=== PATIENT | female | born 1990 ===

== ENCOUNTER 2019-10-16 20:52 | Inpatient (IN) | payer BC ==
[2019-10-16] MEDS ORDERED: Terbutaline 1 MG/ML SDV SUBCUT PRN (23:00)
[2019-10-16] MEDS ORDERED: Carboprost Tromethamine 250 MCG/1 ML Amp IM PRN (23:00)
[2019-10-16] MEDS ORDERED: Sodium Chloride 0.9% 10 ML Syringe FLUSH PRN (23:00)
[2019-10-16] MEDS ORDERED: Tranexamic Acid 1,000 MG in Sodium Chloride 0.9% 100 ML IV PRN (23:00)
[2019-10-16] MEDS ORDERED: Sodium Chloride 0.9% 2.5 ML Syringe FLUSH PRN (23:00)
[2019-10-16] MEDS ORDERED: Water For Irrigation,Sterile 1,000 ML Container IRR PRN (23:00)
[2019-10-16] MEDS ORDERED: Nalbuphine 10 MG/1 ML Vial IVPUSH PRN (23:00)
[2019-10-16] MEDS ORDERED: Sodium Chloride 0.9% 10 ML SDV IV PRN (23:00)
[2019-10-16] MEDS ORDERED: Ondansetron 4 MG/2 ML SDV IVPUSH PRN (23:00)
[2019-10-16] MEDS ORDERED: Methylergonovine 0.2 MG/1 ML Amp IM PRN (23:00)
[2019-10-16] MEDS ORDERED: Oxytocin/0.9 % Sodium Chloride 30 UNIT/500 ML BAG IV SCH ×2 (23:00)
[2019-10-16] MEDS ORDERED: Misoprostol 200 MCG Tab PO PRN (23:00)
[2019-10-16] MEDS ORDERED: Lidocaine 1% 50 ML MDV INJECT PRN (23:00)
[2019-10-16] MEDS ORDERED: Ampicillin 2 GM in Sodium Chloride 0.9% 100 ML IV ONE (23:30)
[2019-10-16] MEDS: Lactated Ringers 1,000 ML IV SCH (23:38)
[2019-10-16] MEDS: Butorphanol 1 MG/ML SDV IVPUSH PRN (23:38)
[2019-10-17] MEDS: Butorphanol 1 MG/ML SDV IVPUSH PRN ×2 (02:00→04:25)
[2019-10-17] MEDS: Ampicillin 1 GM in Sodium Chloride 0.9% 50 ML IV SCH ×5 (03:33→21:46)
[2019-10-17] MEDS: Lactated Ringers 1,000 ML IV SCH ×2 (06:08→11:55)
[2019-10-17] MEDS ORDERED: Bupivicaine/fentaNYL/NS 250 ML ONE (11:04)
--- NOTE | 2019-10-17 12:05 | PCM.PREANE ---
Preanesthetic Assessment - Anesthesia/Transfusion/Family Hx Anesthesia History: Prior Anesthesia Without Reaction Family History of Anesthesia Reaction: No Transfusion History: No Prior Transfusion(s) - Review of Systems General: No Symptoms Pulmonary: No Symptoms Cardiovascular: No Symptoms Gastrointestinal: No Symptoms Neurological: No Symptoms Other: Reports: None - Physical Assessment NPO Status Date: 10/17/19 NPO Status Time: 11:00 Vital Signs: reviewed Height: 5 ft 3 in Weight: 81.647 kg ASA Class: 2 Mental Status: Alert & Oriented x3 Dentition: Reports: Normal Dentition ROM/Head Extension: Full Lungs: Clear to Auscultation, Normal Respiratory Effort Cardiovascular: Regular Rate, Regular Rhythm - Lab Values: Laboratory Last Values WBC 16.82 K/uL (4.0-11.0) H 10/16/19 23:36 RBC 4.35 M/uL (4.30-5.90) 10/16/19 23:36 Hgb 13.5 g/dL (12.0-16.0) 10/16/19 23:36 Hct 39.4 % (36.0-46.0) 10/16/19 23:36 MCV 90.6 fL (80.0-98.0) 10/16/19 23:36 MCH 31.0 pg (27.0-32.0) 10/16/19 23:36 MCHC 34.3 g/dL (31.0-37.0) 10/16/19 23:36 RDW Std Deviation 42.4 fl (28.0-62.0) 10/16/19 23:36 RDW Coeff of Chaparro 13 % (11.0-15.0) 10/16/19 23:36 Plt Count 246 K/uL (150-400) 10/16/19 23:36 MPV 10.40 fL (7.40-12.00) 10/16/19 23:36 Nucleated RBC % 0.0 /100WBC 10/16/19 23:36 Nucleated RBCs # 0 K/uL 10/16/19 23:36 Blood Type O POSITIVE 10/16/19 23:36 Antibody Screen NEGATIVE 10/16/19 23:36 - Allergies Allergies/Adverse Reactions: Allergies Allergy/AdvReac Type Severity Reaction Status Date / Time No Known Allergies Allergy Verified 10/16/19 20:57 - Acknowledgements Anesthesia Type Planned: Epidural Pt an Appropriate Candidate for the Planned Anesthesia: Yes Alternatives and Risks of Anesthesia Discussed w Pt/Guardian: Yes Pt/Guardian Understands and Agrees with Anesthesia Plan: Yes PreAnesthesia Questionnaire HEENT History: Reports: None Cardiovascular History: Reports: None Respiratory History: Reports: None Gastrointestinal History: Reports: GERD Genitourinary History: Reports: None MANAGER NEWS History: Reports: : 1 LMP (Approximate): Musculoskeletal History: Reports: None Neurological History: Reports: None Psychiatric History: Reports: None Endocrine/Metabolic History: Reports: None Hematologic History: Reports: None - Past Surgical History HEENT Surgical History: Reports: Oral Surgery - SUBSTANCE USE Smoking Status *Q: Never Smoker Recreational Drug Use History: No - HOME MEDS Home Medications: Home Meds Vits #93/Iron Fum/FA [ Formula Tablet] 1 each PO DAILY [History] - CURRENT (IN HOUSE) MEDS Current Meds: Current Medications Butorphanol Tartrate (Stadol) 1 mg IVPUSH Q1H PRN PRN Reason: Pain Last Admin: 10/17/19 04:25 Dose: 1 mg Carboprost Tromethamine (Hemabate Ds) 250 mcg IM ASDIRECTED PRN PRN Reason: Post Hemorrhage Lactated Ringer's (Ringers, Lactated) 1,000 mls @ 150 mls/hr IV ASDIRECTED TULIO Last Admin: 10/17/19 11:55 Dose: 150 mls/hr Oxytocin/Sodium Chloride (Oxytocin 30 Unit/500 Ml-Ns) 30 unit in 500 mls @ 500 mls/hr IV TITRATE TULIO Tranexamic Acid 1,000 mg/ (Sodium Chloride) 110 mls @ 660 mls/hr IV ONETIME PRN PRN Reason: Bleeding Oxytocin/Sodium Chloride (Oxytocin 30 Unit/500 Ml-Ns) 30 unit in 500 mls @ 2 mls/hr IV TITRATE TULIO; Protocol Last Admin: 10/17/19 08:13 Dose: 2 munits/min, 2 mls/hr Ampicillin Sodium 1 gm/ Sodium (Chloride) 50 mls @ 100 mls/hr IV Q4H TULIO Last Admin: 10/17/19 11:46 Dose: 100 mls/hr Lidocaine HCl (Xylocaine 1%) 50 ml INJECT ONETIME PRN PRN Reason: Laceration repair Methylergonovine Maleate (Methergine) 0.2 mg IM ASDIRECTED PRN PRN Reason: Post Hemorrhage Misoprostol (Cytotec) 200 mcg PO ONETIME PRN PRN Reason: Post Hemorrhage Nalbuphine HCl (Nubain) 10 mg IVPUSH Q1H PRN PRN Reason: Pain (severe 7-10) Last Admin: 10/17/19 06:09 Dose: 10 mg Ondansetron HCl (Zofran) 4 mg IVPUSH Q6H PRN PRN Reason: Nausea/Vomiting Sodium Chloride (Saline Flush) 10 ml FLUSH ASDIRECTED PRN PRN Reason: Keep Vein Open Sodium Chloride (Saline Flush) 2.5 ml FLUSH ASDIRECTED PRN PRN Reason: Keep Vein Open Sodium Chloride (Normal Saline) 10 ml IV ASDIRECTED PRN PRN Reason: IV Use Sterile Water (Sterile Water For Irrigation) 1,000 ml IRR ASDIRECTED PRN PRN Reason: delivery Terbutaline Sulfate (Brethine) 0.25 mg SUBCUT ASDIRECTED PRN PRN Reason: Tacysystole Discontinued Medications Ampicillin Sodium 2 gm/ Sodium (Chloride) 100 mls @ 200 mls/hr IV ONETIME ONE Stop: 10/16/19 23:59 Last Admin: 10/16/19 23:39 Dose: 200 mls/hr Fentanyl/Bupivacaine HCl (Fentanyl/Bupivacaine/Ns 2 Mcg-0.125% 250 Ml) Confirm Administered Dose 250 mls @ as directed .ROUTE .[facility]-MED ONE Stop: 10/17/19 11:05
[2019-10-17] MEDS ORDERED: Bisacodyl 10 MG Supp RECTAL PRN (17:59)
[2019-10-17] MEDS ORDERED: Lanolin 100% Cream 7 GM Tube TOP PRN (17:59)
[2019-10-17] MEDS ORDERED: Docusate Sodium 100 MG Cap PO PRN (17:59)
--- NOTE | 2019-10-17 18:06 | PCM.DEL ---
L & D Note - General Info Date of Service: 10/17/19 Mother's Due Date: 10/08/19 - Delivery Note Labor: Augmented by Oxytocin Delivery Outcome: Livebirth Infant Delivery Method: Spontaneous Vaginal Delivery-Single Delivery Mode: Spontaneous Presentation: Right Occiput Anterior (GEM) Nuchal Cord: None Anesthesia Type: Epidural Anesthetic: Lidocaine (Xylocaine) 1% Plain Local Anesthetic Volume: Other (30) Amniotic Fluid Description: Clear Episiotomy Type: Right Mediolateral Laceration: None Suture type: Vicryl Suture size: 2-0 Placenta: Intact, Spontaneous Cord: 3 Vessels Resuscitation Needed: Yes [place]: Suctioned, Stimulated, Warmed, Warmer Used Score 1 min: 7 Score 5 min: 8 Vacuum Extractor Progress Note - Alternative Labor Strategies Considered Alternative Labor Strategies Considered:: Reports: Yes Strategies Considered:: Reports: Contraction Intensity Adequate, Position Changes Used to Facilitate Rotation & Descent Indications Considered:: Reports: Yes Indications:: Reports: Prolonged 2nd Stage Time Out:: Reports: No - Patient Prepared Patient Prepared:: Reports: Yes Informed Consent:: Reports: Yes, Verbal Risks: Reports: Yes Risks Include:: Reports: Laceration, Shoulder Dystocia, Maternal Injury, Other ( intracranial hemorrhage) Anesthesia/Analgesia Adequate:: Reports: Yes - Probability of Success High Probability of Success:: Reports: Yes Weight Estimated:: Reports: AGA Patient Diabetic:: Reports: No Pelvis Adequate:: Reports: Yes Asynclitic:: Reports: Yes Station:: +5 - Application Time Maximum Application Time & Number of Pop-Offs Predetermined:: Reports: No Maximum Pressure Maintained in [place] (cm Hg):: 75 Total Application Time (min): *max=20min: 3 Number of Times Cup Disengaged:: 2 Type of Vacuum Used:: Reports: Low profile Vacuum Extraction: Unsuccessful Comments:: poor seal between vacuum and infants head; second vacuum applicator tried again with poor seal - Exit Strategy Exit strategy available:: Reports: Yes and resuscitation teams readily available:: Reports: No (right mediolateral episiotomy performed and Ritgen's maneuver performed with successful delivery of infant) Consult as indicated:: audograph operator in room - General Info Date of Service: 10/17/19 - Patient Data Weight - Most Recent: 81.647 kg Lab Results Last 24 Hours: Laboratory Results - last 24 hr 10/16/19 10/16/19 Range/Units 23:36 23:36 WBC 16.82 H (4.0-11.0) K/uL RBC 4.35 (4.30-5.90) M/uL Hgb 13.5 (12.0-16.0) g/dL Hct 39.4 (36.0-46.0) % MCV 90.6 (80.0-98.0) fL MCH 31.0 (27.0-32.0) pg MCHC 34.3 (31.0-37.0) g/dL RDW Std Deviation 42.4 (28.0-62.0) fl RDW Coeff of Chaparro 13 (11.0-15.0) % Plt Count 246 (150-400) K/uL MPV 10.40 (7.40-12.00) fL Nucleated RBC % 0.0 /100WBC Nucleated RBCs # 0 K/uL Blood Type O POSITIVE Antibody Screen NEGATIVE Med Orders - Current: Current Medications Butorphanol Tartrate (Stadol) 1 mg IVPUSH Q1H PRN PRN Reason: Pain Last Admin: 10/17/19 04:25 Dose: 1 mg Carboprost Tromethamine (Hemabate Ds) 250 mcg IM ASDIRECTED PRN PRN Reason: Post Hemorrhage Lactated Ringer's (Ringers, Lactated) 1,000 mls @ 150 mls/hr IV ASDIRECTED TULIO Last Admin: 10/17/19 11:55 Dose: 150 mls/hr Oxytocin/Sodium Chloride (Oxytocin 30 Unit/500 Ml-Ns) 30 unit in 500 mls @ 500 mls/hr IV TITRATE TULIO Tranexamic Acid 1,000 mg/ (Sodium Chloride) 110 mls @ 660 mls/hr IV ONETIME PRN PRN Reason: Bleeding Oxytocin/Sodium Chloride (Oxytocin 30 Unit/500 Ml-Ns) 30 unit in 500 mls @ 2 mls/hr IV TITRATE TULIO; Protocol Last Titration: 10/17/19 12:16 Dose: 10 munits/min, 10 mls/hr Ampicillin Sodium 1 gm/ Sodium (Chloride) 50 mls @ 100 mls/hr IV Q4H TULIO Last Admin: 10/17/19 11:46 Dose: 100 mls/hr Lidocaine HCl (Xylocaine 1%) 50 ml INJECT ONETIME PRN PRN Reason: Laceration repair Methylergonovine Maleate (Methergine) 0.2 mg IM ASDIRECTED PRN PRN Reason: Post Hemorrhage Misoprostol (Cytotec) 200 mcg PO ONETIME PRN PRN Reason: Post Hemorrhage Nalbuphine HCl (Nubain) 10 mg IVPUSH Q1H PRN PRN Reason: Pain (severe 7-10) Last Admin: 10/17/19 06:09 Dose: 10 mg Ondansetron HCl (Zofran) 4 mg IVPUSH Q6H PRN PRN Reason: Nausea/Vomiting Sodium Chloride (Saline Flush) 10 ml FLUSH ASDIRECTED PRN PRN Reason: Keep Vein Open Sodium Chloride (Saline Flush) 2.5 ml FLUSH ASDIRECTED PRN PRN Reason: Keep Vein Open Sodium Chloride (Normal Saline) 10 ml IV ASDIRECTED PRN PRN Reason: IV Use Sterile Water (Sterile Water For Irrigation) 1,000 ml IRR ASDIRECTED PRN PRN Reason: delivery Terbutaline Sulfate (Brethine) 0.25 mg SUBCUT ASDIRECTED PRN PRN Reason: Tacysystole Discontinued Medications Ampicillin Sodium 2 gm/ Sodium (Chloride) 100 mls @ 200 mls/hr IV ONETIME ONE Stop: 10/16/19 23:59 Last Admin: 10/16/19 23:39 Dose: 200 mls/hr Fentanyl/Bupivacaine HCl (Fentanyl/Bupivacaine/Ns 2 Mcg-0.125% 250 Ml) Confirm Administered Dose 250 mls @ as directed .ROUTE .STK-MED ONE Stop: 10/17/19 11:05 - Problem List & Annotations (1) Vaginal delivery SNOMED Code(s): 673687643 Code(s): O80 - ENCOUNTER FOR FULL-TERM UNCOMPLICATED DELIVERY Status: Acute Current Visit: Yes - Problem List Review Problem List Initiated/Reviewed/Updated: Yes - My Orders Last 24 Hours: My Active Orders 10/16/19 23:00 Bedrest Bathroom Privileges [RC] ASDIRECTED Communication Order [RC] ASDIRECTED Communication Order [RC] ASDIRECTED May Shower [RC] ASDIRECTED Notify Provider [RC] PRN Notify Provider [RC] PRN Oxygen Therapy [RC] ASDIRECTED Vital Signs [RC] PER UNIT ROUTINE Butorphanol [Stadol] 1 mg IVPUSH Q1H PRN Carboprost Tromethamine [Hemabate DS] 250 mcg IM ASDIRECTED PRN Lactated Ringers [Ringers, Lactated] 1,000 ml IV ASDIRECTED Lidocaine 1% [Xylocaine 1%] 50 ml INJECT ONETIME PRN Methylergonovine [Methergine] 0.2 mg IM ASDIRECTED PRN Nalbuphine [Nubain] 10 mg IVPUSH Q1H PRN Ondansetron [Zofran] 4 mg IVPUSH Q6H PRN Oxytocin/0.9 % Sodium Chloride [Oxytocin 30 Unit/500 ML-NS] 30 unit in 500 ml IV TITRATE Oxytocin/0.9 % Sodium Chloride [Oxytocin 30 Unit/500 ML-NS] 30 unit in 500 ml IV TITRATE Sodium Chloride 0.9% [Normal Saline] 10 ml IV ASDIRECTED PRN Sodium Chloride 0.9% [Saline Flush] 10 ml FLUSH ASDIRECTED PRN Sodium Chloride 0.9% [Saline Flush] 2.5 ml FLUSH ASDIRECTED PRN Terbutaline [Brethine] 0.25 mg SUBCUT ASDIRECTED PRN Tranexamic Acid [Cyklokapron] 1,000 mg Sodium Chloride 0.9% [Normal Saline] 100 ml IV ONETIME Water For Irrigation,Sterile [Sterile Water for Irrigation] 1,000 ml IRR ASDIRECTED PRN miSOPROStoL [Cytotec] 200 mcg PO ONETIME PRN Scalp Electrode [WOMSER] Per Unit Routine Medication Administration Instruction [OM.PC] Q3H Peripheral IV Insertion Adult [OM.PC] Routine 10/17/19 03:30 Ampicillin 1 gm Sodium Chloride 0.9% [Normal Saline] 50 ml IV Q4H 10/17/19 17:59 Patient Status [ADT] Routine May Shower [RC] ASDIRECTED Notify Provider Vital Signs [RC] ASDIRECTED Up ad Veronica [RC] ASDIRECTED Vital Signs [RC] PER UNIT ROUTINE Acetaminophen [Tylenol Extra Strength] 1,000 mg PO Q6H PRN Benzocaine/Menthol [Dermoplast Pain Relief 20%-0.5% [place]] 78 gm TOP ASDIRECTED PRN Docusate Sodium [Colace] 100 mg PO BID PRN Ibuprofen [Motrin] 800 mg PO Q8H PRN Lanolin [Lansinoh HPA] See Dose Instructions TOP ASDIRECTED PRN Witch Chrissie [Tucks] 1 pad TOP ASDIRECTED PRN bisacodyL [Dulcolax] 10 mg RECTAL ONETIME PRN oxyCODONE 5 mg PO Q4H PRN Assess Lochia [WOMSER] Per Unit Routine Assess Uterine Involution [WOMSER] Per Unit Routine Breast Pump [WOMSER] Per Unit Routine Ice Therapy [OM.PC] Per Unit Routine Perineal Care [OM.PC] Per Unit Routine Peripheral IV Discontinue [OM.PC] Routine Sitz Bath [OM.PC] Per Unit Routine 10/17/19 18:00 Cooling Warming Measures [RC] ASDIRECTED 10/17/19 18:01 BLOOD GAS ARTERIAL UMBILICAL [BG] Routine BLOOD GAS VENOUS UMBILICAL [BG] Routine 10/17/19 23:36 RPR (SYPHILIS SERO) W/ RFLX [REF] Routine 10/17/19 Breakfast Clear Liquid Diet [DIET] 10/17/19 Dinner Regular Diet [DIET] 10/18/19 05:11 HEMOGLOBIN/HEMATOCRIT,HH [HEME] Timed - Assessment Assessment:: 29yo s/p at 41w2d - Plan Plan:: Admit to unit for routine care.
[2019-10-17] MEDS ORDERED: Oxytocin 10 Units/1 ML SDV ONE (18:15)
[2019-10-17] MEDS: Ibuprofen 800 MG Tab PO PRN (19:56)
[2019-10-17] MEDS: Benzocaine/Menthol 20%-0.5% Spray 78 GM Cannister TOP PRN (19:56)
[2019-10-17] MEDS: Witch Hazel Medicated Pads 40/Jar TOP PRN (19:57)
[2019-10-17] MEDS: Acetaminophen 500 MG Tab PO PRN (22:23)
--- NOTE | 2019-10-17 23:50 | OR ---
SURGEON: Lyndsey Chen MD DATE OF PROCEDURE: 10/17/2019 PREOPERATIVE DIAGNOSES: 29-year-old, G1, P0, at 41 weeks and 2 days gestation, in labor. GBS positive. POSTOPERATIVE DIAGNOSES: 29-year-old G1, P1-0-0-1 status post delivery. GBS positive. PRIMARY SURGEON: Lyndsey Chen MD WEBSITE OPTIMIZATION STRATEGIST: Fransisca Mai M.D. ANESTHESIA: Epidural. ESTIMATED BLOOD LOSS: 500 mL. FINDINGS: Live male infant in cephalic presentation. score 7 and 8 at one and five minutes respectively, currently in the nursery receiving pressure. Weight pending. Placenta intact with 3-vessel cord. DESCRIPTION OF PROCEDURE: The patient presented to Labor and Delivery in early active labor. She was found to be 3 cm upon presentation. Ampicillin was begun for GBS positive status. She progressed to 6 cm spontaneously over the course of the evening. She underwent artificial rupture of membranes with clear fluid noted roughly at 5:30 a.m. At 8:30 a.m., Pitocin was started for augmentation. The patient received an epidural at 12 p.m. She was found to be complete cervical dilation and +2 station. She rested for 1 hour and then began pushing. She made slow but steady progress pushing and at this time I was called to the room. She continued to make progress pushing to +5 station. At this time, it had been 4 hours with the patient pushing and she reported she was tired and would like assistance with the delivery. The risks and benefits of vacuum were discussed with the patient and she agreed. The gas regulator repairer helper was called to the patient's room. The kiwi vacuum applicator was applied to the infant's head and seal down to 75 mmHg. Over the course of 1 contraction, 3 pulls were used lasting 50 seconds total with no pop-offs. The vacuum was released in between contractions with second contraction lasting 40 seconds over 3 pushes with 1 pop-off. At this time, a seal could not be re-obtained. A second kiwi vacuum was then opened and applied with again poor seal felt due to the infant's hair. Dr. Fransisca Mai was called to the room for assistance. A right mediolateral episiotomy was performed. The patient again began pushing, and with the assistance of the Ritgen's maneuver, the infant's head was delivered in right occiput anterior position, asynclitic, followed by the shoulders and remainder of the body. The infant was placed on the maternal abdomen. After approximately 30 seconds, the cord was clamped and cut and the was handed off to the gas regulator repairer helper and nurse. 1% lidocaine without epinephrine was infiltrated into the episiotomy, which had extended proximally into the vagina; however, no other lacerations were noted. A rectal exam was performed and confirmed that the anal sphincter and rectal mucosa were intact. The placenta was then delivered using the Monroe-Montoya maneuver intact with 3-vessel cord. Cord gases were obtained. The episiotomy and vaginal lacerations were repaired with a running lock stitch of 2-0 Vicryl suture to anatomy and hemostasis. The patient tolerated the delivery well and will be transferred to in stable condition. RAMON / EDUARDO /[id number] RACHAEL
[2019-10-18] MEDS: Ibuprofen 800 MG Tab PO PRN ×2 (05:07→18:30)
--- NOTE | 2019-10-18 07:37 | PCM48HPAN ---
Post Anesthesia Note - EVALUATION WITHIN 48HRS OF ANESTHETIC Vital Signs in Normal Range: Yes Patient Participated in Evaluation: Yes Respiratory Function Stable: Yes Airway Patent: Yes Cardiovascular Function Stable: Yes Hydration Status Stable: Yes Pain Control Satisfactory: Yes Nausea and Vomiting Control Satisfactory: Yes Mental Status Recovered: Yes Vital Signs: Last Vital Signs Temp 36.2 C 10/18/19 05:00 Pulse 85 10/18/19 05:00 Resp 15 10/18/19 05:00 BP 102/51 L 10/18/19 05:00 Pulse Ox 98 10/18/19 05:00
--- NOTE | 2019-10-18 08:54 | PCM.PNPP ---
- General Info Date of Service: 10/18/19 Admission Dx/Problem (Free Text): Pain controlled. Minimal lochia. Denies fevers/chills. Functional Status: Reports: Pain Controlled, Tolerating Diet, Ambulating, Urinating - Review of Systems General: Reports: No Symptoms HEENT: Reports: No Symptoms Pulmonary: Reports: No Symptoms Cardiovascular: Reports: No Symptoms Gastrointestinal: Reports: No Symptoms Genitourinary: Reports: No Symptoms Musculoskeletal: Reports: No Symptoms Skin: Reports: No Symptoms Neurological: Reports: No Symptoms Psychiatric: Reports: No Symptoms - Patient Data Vital Signs - Most Recent: Last Vital Signs Temp 36.2 C 10/18/19 05:00 Pulse 85 10/18/19 05:00 Resp 15 10/18/19 05:00 BP 102/51 L 10/18/19 05:00 Pulse Ox 98 10/18/19 05:00 Weight - Most Recent: 81.647 kg Lab Results - Last 24 Hours: Laboratory Results - last 24 hr 10/17/19 10/18/19 Range/Units 17:13 05:50 Hgb 10.2 L (12.0-16.0) g/dL Hct 29.9 L (36.0-46.0) % Cord ABG pH 7.154 L (7.18-7.38) Cord ABG Base Excess -11 L (-10--2) Cord VBG pH 7.224 L (7.25-7.45) Cord VBG Base Excess -11 L (-10--2) Med Orders - Current: Current Medications Acetaminophen (Tylenol Extra Strength) 1,000 mg PO Q6H PRN PRN Reason: Pain Last Admin: 10/17/19 22:23 Dose: 1,000 mg Benzocaine/Menthol (Dermoplast Pain Relief 20%-0.5% [place]) 78 gm TOP ASDIRECTED PRN PRN Reason: Perineal Comfort Measure Last Admin: 10/17/19 19:56 Dose: 1 can Bisacodyl (Dulcolax) 10 mg RECTAL ONETIME PRN PRN Reason: Constipation Butorphanol Tartrate (Stadol) 1 mg IVPUSH Q1H PRN PRN Reason: Pain Last Admin: 10/17/19 04:25 Dose: 1 mg Carboprost Tromethamine (Hemabate Ds) 250 mcg IM ASDIRECTED PRN PRN Reason: Post Hemorrhage Docusate Sodium (Colace) 100 mg PO BID PRN PRN Reason: Constipation Last Admin: 10/17/19 19:56 Dose: 100 mg Emollient Ointment (Lansinoh Hpa) 0 gm TOP ASDIRECTED PRN PRN Reason: Sore Nipples Lactated Ringer's (Ringers, Lactated) 1,000 mls @ 150 mls/hr IV ASDIRECTED TULIO Last Admin: 10/17/19 11:55 Dose: 150 mls/hr Oxytocin/Sodium Chloride (Oxytocin 30 Unit/500 Ml-Ns) 30 unit in 500 mls @ 500 mls/hr IV TITRATE TULIO Tranexamic Acid 1,000 mg/ (Sodium Chloride) 110 mls @ 660 mls/hr IV ONETIME PRN PRN Reason: Bleeding Oxytocin/Sodium Chloride (Oxytocin 30 Unit/500 Ml-Ns) 30 unit in 500 mls @ 2 mls/hr IV TITRATE TULIO; Protocol Last Titration: 10/17/19 12:16 Dose: 10 munits/min, 10 mls/hr Ibuprofen (Motrin) 800 mg PO Q8H PRN PRN Reason: Pain Last Admin: 10/18/19 05:07 Dose: 800 mg Lidocaine HCl (Xylocaine 1%) 50 ml INJECT ONETIME PRN PRN Reason: Laceration repair Last Admin: 10/17/19 18:23 Dose: 50 ml Methylergonovine Maleate (Methergine) 0.2 mg IM ASDIRECTED PRN PRN Reason: Post Hemorrhage Misoprostol (Cytotec) 200 mcg PO ONETIME PRN PRN Reason: Post Hemorrhage Nalbuphine HCl (Nubain) 10 mg IVPUSH Q1H PRN PRN Reason: Pain (severe 7-10) Last Admin: 10/17/19 06:09 Dose: 10 mg Ondansetron HCl (Zofran) 4 mg IVPUSH Q6H PRN PRN Reason: Nausea/Vomiting Oxycodone HCl (Oxycodone) 5 mg PO Q4H PRN PRN Reason: Pain Sodium Chloride (Saline Flush) 10 ml FLUSH ASDIRECTED PRN PRN Reason: Keep Vein Open Sodium Chloride (Saline Flush) 2.5 ml FLUSH ASDIRECTED PRN PRN Reason: Keep Vein Open Sodium Chloride (Normal Saline) 10 ml IV ASDIRECTED PRN PRN Reason: IV Use Sterile Water (Sterile Water For Irrigation) 1,000 ml IRR ASDIRECTED PRN PRN Reason: delivery Terbutaline Sulfate (Brethine) 0.25 mg SUBCUT ASDIRECTED PRN PRN Reason: Tacysystole Chloe Huiel (Tucks) 1 pad TOP ASDIRECTED PRN PRN Reason: comfort care Last Admin: 10/17/19 19:57 Dose: 1 tub Discontinued Medications Ampicillin Sodium 2 gm/ Sodium (Chloride) 100 mls @ 200 mls/hr IV ONETIME ONE Stop: 10/16/19 23:59 Last Admin: 10/16/19 23:39 Dose: 200 mls/hr Ampicillin Sodium 1 gm/ Sodium (Chloride) 50 mls @ 100 mls/hr IV Q4H TULIO Last Admin: 10/17/19 21:46 Dose: Not Given Fentanyl/Bupivacaine HCl (Fentanyl/Bupivacaine/Ns 2 Mcg-0.125% 250 Ml) Confirm Administered Dose 250 mls @ as directed .ROUTE .STK-MED ONE Stop: 10/17/19 11:05 Last Admin: 10/17/19 21:45 Dose: Not Given Oxytocin (Pitocin) Confirm Administered Dose 10 unit .ROUTE .STK-MED ONE Stop: 10/17/19 18:16 Last Admin: 10/17/19 18:23 Dose: 10 unit - Interaction Disposition, : Moran in Room with Family Infant Interaction: Holding Infant Infant Feeding: Attempted ; Nursed Fair/Poor Support Person: - Recovery Exam Fundal Tone: Firm Fundal Level: 2 Fingerbreadths Below Umbilicus Fundal Placement: Midline Lochia Amount: Scant Lochia Color: Rubra/Red Episiotomy/Laceration: Approximated Bladder Status: Voiding Urinary Elimination: Voided - Exam General: Alert, Oriented Neck: Supple Lungs: Clear to Auscultation, Normal Respiratory Effort Cardiovascular: Regular Rate, Regular Rhythm GI/Abdominal Exam: Soft, Non-Tender Extremities: No Pedal Edema Skin: Warm, Dry, Intact Neurological: No New Focal Deficit Psy/Mental Status: Alert, Normal Affect, Normal Mood - Problem List & Annotations (1) Vaginal delivery SNOMED Code(s): 607228189 Code(s): O80 - ENCOUNTER FOR FULL-TERM UNCOMPLICATED DELIVERY Status: Acute Current Visit: Yes - Problem List Review Problem List Initiated/Reviewed/Updated: Yes - My Orders Last 24 Hours: My Active Orders 10/17/19 17:59 Patient Status [ADT] Routine May Shower [RC] ASDIRECTED Notify Provider Vital Signs [RC] ASDIRECTED Up ad Veronica [RC] ASDIRECTED Vital Signs [RC] PER UNIT ROUTINE Acetaminophen [Tylenol Extra Strength] 1,000 mg PO Q6H PRN Benzocaine/Menthol [Dermoplast Pain Relief 20%-0.5% [place]] 78 gm TOP ASDIRECTED PRN Docusate Sodium [Colace] 100 mg PO BID PRN Ibuprofen [Motrin] 800 mg PO Q8H PRN Lanolin [Lansinoh HPA] See Dose Instructions TOP ASDIRECTED PRN Witch Chrissie [Tucks] 1 pad TOP ASDIRECTED PRN bisacodyL [Dulcolax] 10 mg RECTAL ONETIME PRN oxyCODONE 5 mg PO Q4H PRN Assess Lochia [WOMSER] Per Unit Routine Assess Uterine Involution [WOMSER] Per Unit Routine Breast Pump [WOMSER] Per Unit Routine Ice Therapy [OM.PC] Per Unit Routine Perineal Care [OM.PC] Per Unit Routine Peripheral IV Discontinue [OM.PC] Routine Sitz Bath [OM.PC] Per Unit Routine 10/17/19 23:36 RPR (SYPHILIS SERO) W/ RFLX [REF] Routine 10/17/19 Dinner Regular Diet [DIET] 10/18/19 08:51 Ready for Discharge [RC] PER UNIT ROUTINE - Assessment Assessment:: 29yo s/p at 41w2d, PPD#1 - Plan Plan:: Patient meeting all milestones. Desires discharge home today if infant cleared by pharmaceutical process engineer. Reviewed discharge instructions and when to call clinic.
[2019-10-18] MEDS: oxyCODONE 5 MG Tab PO PRN ×2 (12:42→18:30)
[2019-10-18] MEDS: Acetaminophen 500 MG Tab PO PRN (12:45)
[2019-10-19] MEDS: Ibuprofen 800 MG Tab PO PRN ×2 (04:41→09:20)
[2019-10-19] MEDS: Acetaminophen 500 MG Tab PO PRN ×2 (04:42→09:19)
[2019-10-19] MEDS: Witch Hazel Medicated Pads 40/Jar TOP PRN (04:43)
[2019-10-19] MEDS: Benzocaine/Menthol 20%-0.5% Spray 78 GM Cannister TOP PRN (04:44)
--- NOTE | 2019-10-19 08:39 | PCM.PNPP ---
- General Info Date of Service: 10/19/19 Admission Dx/Problem (Free Text): Pain controlled. Minimal lochia. Denies fevers/chills. Functional Status: Reports: Pain Controlled, Tolerating Diet, Ambulating, Urinating - Review of Systems General: Reports: No Symptoms HEENT: Reports: No Symptoms Pulmonary: Reports: No Symptoms Cardiovascular: Reports: No Symptoms Gastrointestinal: Reports: No Symptoms Genitourinary: Reports: No Symptoms Musculoskeletal: Reports: No Symptoms Skin: Reports: No Symptoms Neurological: Reports: No Symptoms Psychiatric: Reports: No Symptoms - Patient Data Vital Signs - Most Recent: Last Vital Signs Temp 36.6 C 10/19/19 04:33 Pulse 93 10/19/19 04:33 Resp 16 10/19/19 04:33 BP 114/69 10/19/19 04:33 Pulse Ox 98 10/19/19 04:33 Weight - Most Recent: 81.647 kg Lab Results - Last 24 Hours: Laboratory Results - last 24 hr 10/17/19 Range/Units 23:36 RPR Non-Reac (Non-Reac) Med Orders - Current: Current Medications Acetaminophen (Tylenol Extra Strength) 1,000 mg PO Q6H PRN PRN Reason: Pain Last Admin: 10/19/19 04:42 Dose: 1,000 mg Benzocaine/Menthol (Dermoplast Pain Relief 20%-0.5% [employer]) 78 gm TOP ASDIRECTED PRN PRN Reason: Perineal Comfort Measure Last Admin: 10/19/19 04:44 Dose: 1 can Bisacodyl (Dulcolax) 10 mg RECTAL ONETIME PRN PRN Reason: Constipation Butorphanol Tartrate (Stadol) 1 mg IVPUSH Q1H PRN PRN Reason: Pain Last Admin: 10/17/19 04:25 Dose: 1 mg Carboprost Tromethamine (Hemabate Ds) 250 mcg IM ASDIRECTED PRN PRN Reason: Post Hemorrhage Docusate Sodium (Colace) 100 mg PO BID PRN PRN Reason: Constipation Last Admin: 10/17/19 19:56 Dose: 100 mg Emollient Ointment (Lansinoh Hpa) 0 gm TOP ASDIRECTED PRN PRN Reason: Sore Nipples Lactated Ringer's (Ringers, Lactated) 1,000 mls @ 150 mls/hr IV ASDIRECTED [facility] Last Admin: 10/17/19 11:55 Dose: 150 mls/hr Oxytocin/Sodium Chloride (Oxytocin 30 Unit/500 Ml-Ns) 30 unit in 500 mls @ 500 mls/hr IV TITRATE [facility] Tranexamic Acid 1,000 mg/ (Sodium Chloride) 110 mls @ 660 mls/hr IV ONETIME PRN PRN Reason: Bleeding Oxytocin/Sodium Chloride (Oxytocin 30 Unit/500 Ml-Ns) 30 unit in 500 mls @ 2 mls/hr IV TITRATE [facility]; Protocol Last Titration: 10/17/19 12:16 Dose: 10 munits/min, 10 mls/hr Ibuprofen (Motrin) 800 mg PO Q8H PRN PRN Reason: Pain Last Admin: 10/19/19 04:41 Dose: 800 mg Lidocaine HCl (Xylocaine 1%) 50 ml INJECT ONETIME PRN PRN Reason: Laceration repair Last Admin: 10/17/19 18:23 Dose: 50 ml Methylergonovine Maleate (Methergine) 0.2 mg IM ASDIRECTED PRN PRN Reason: Post Hemorrhage Misoprostol (Cytotec) 200 mcg PO ONETIME PRN PRN Reason: Post Hemorrhage Nalbuphine HCl (Nubain) 10 mg IVPUSH Q1H PRN PRN Reason: Pain (severe 7-10) Last Admin: 10/17/19 06:09 Dose: 10 mg Ondansetron HCl (Zofran) 4 mg IVPUSH Q6H PRN PRN Reason: Nausea/Vomiting Oxycodone HCl (Oxycodone) 5 mg PO Q4H PRN PRN Reason: Pain Last Admin: 10/18/19 18:30 Dose: 5 mg Sodium Chloride (Saline Flush) 10 ml FLUSH ASDIRECTED PRN PRN Reason: Keep Vein Open Sodium Chloride (Saline Flush) 2.5 ml FLUSH ASDIRECTED PRN PRN Reason: Keep Vein Open Sodium Chloride (Normal Saline) 10 ml IV ASDIRECTED PRN PRN Reason: IV Use Sterile Water (Sterile Water For Irrigation) 1,000 ml IRR ASDIRECTED PRN PRN Reason: delivery Terbutaline Sulfate (Brethine) 0.25 mg SUBCUT ASDIRECTED PRN PRN Reason: Tacysystole Witch Chrissie (Tucks) 1 pad TOP ASDIRECTED PRN PRN Reason: comfort care Last Admin: 10/19/19 04:43 Dose: 1 tub Discontinued Medications Ampicillin Sodium 2 gm/ Sodium (Chloride) 100 mls @ 200 mls/hr IV ONETIME ONE Stop: 10/16/19 23:59 Last Admin: 10/16/19 23:39 Dose: 200 mls/hr Ampicillin Sodium 1 gm/ Sodium (Chloride) 50 mls @ 100 mls/hr IV Q4H [facility] Last Admin: 10/17/19 21:46 Dose: Not Given Fentanyl/Bupivacaine HCl (Fentanyl/Bupivacaine/Ns 2 Mcg-0.125% 250 Ml) Confirm Administered Dose 250 mls @ as directed .ROUTE .STK-MED ONE Stop: 10/17/19 11:05 Last Admin: 10/17/19 21:45 Dose: Not Given Oxytocin (Pitocin) Confirm Administered Dose 10 unit .ROUTE .STK-MED ONE Stop: 10/17/19 18:16 Last Admin: 10/17/19 18:23 Dose: 10 unit - Infant Interaction Disposition, : to Nursery Infant Interaction: Unable to Hold at this Time Infant Feeding: Attempted ; Nursed Fair/Poor Support Person: - Recovery Exam Fundal Tone: Firm Fundal Level: 1 Fingerbreadths Below Umbilicus Fundal Placement: Midline Lochia Amount: Scant Lochia Color: Rubra/Red Perineum Description: Edematous Episiotomy/Laceration: Approximated Bladder Status: Voiding Urinary Elimination: Voided - Exam General: Alert, Oriented Neck: Supple Lungs: Clear to Auscultation, Normal Respiratory Effort Cardiovascular: Regular Rate, Regular Rhythm GI/Abdominal Exam: Soft, Non-Tender Extremities: No Pedal Edema Skin: Warm, Dry, Intact Neurological: No New Focal Deficit Psy/Mental Status: Alert, Normal Affect, Normal Mood - Problem List & Annotations (1) Vaginal delivery SNOMED Code(s): 415963557 Code(s): O80 - ENCOUNTER FOR FULL-TERM UNCOMPLICATED DELIVERY Status: Acute Current Visit: Yes - Problem List Review Problem List Initiated/Reviewed/Updated: Yes - My Orders Last 24 Hours: My Active Orders 10/18/19 08:51 Ready for Discharge [RC] PER UNIT ROUTINE - Assessment Assessment:: 29yo s/p at 41w2d, PPD#2 - Plan Plan:: Patient meeting all milestones. Discharge home today. Reviewed discharge instructions and when to call clinic.
== END 2019-10-19 16:45 | disposition home or self-care (01) | DRG 560 ==
LOC: MW.OBCHECK 20:52 → MW.OB 20:54 → MW.OBCHECK 22:48 → OBSVTOIN 10-17 17:59 → MW.OB 10-17 22:00
PROVIDERS: ADMIT Obstetrics & Gynecology; ATTEND Obstetrics & Gynecology
PROC: 10E0XZZ Delivery of Products of Conception, External Approach (ICD-10-PCS; principal; 2019-10-17)
PROC: 10907ZC Drainage of Amniotic Fluid, Therapeutic from Products of Conception, Via Natural or Artificial Opening (ICD-10-PCS; 2019-10-17)
PROC: 0W8NXZZ Division of Female Perineum, External Approach (ICD-10-PCS; 2019-10-17)
PROC: 3E0R3BZ Introduction of Anesthetic Agent into Spinal Canal, Percutaneous Approach (ICD-10-PCS; 2019-10-17)
PROC: 00HU33Z Insertion of Infusion Device into Spinal Canal, Percutaneous Approach (ICD-10-PCS; 2019-10-17)
DX: O99.824 Streptococcus B carrier state complicating childbirth (principal); Z3A.41 41 weeks gestation of pregnancy; Z37.0 Single live birth
CPT/HCPCS: 01967; 36415; 51702; 59025; 59409; 82803; 85014; 85018; 85027; 86592; 86593; 86850; 86900; 86901; A9270-GY; J0290; J0595; J2001; J2300; J2590; J7050; J7120

== ENCOUNTER 2021-06-02 09:58 | Inpatient (IN) | payer BC ==
[2021-06-02] MEDS ORDERED: Water For Irrigation,Sterile 1,000 ML Container IRR PRN (10:37)
[2021-06-02] MEDS ORDERED: Ondansetron 4 MG/2 ML SDV IVPUSH PRN (10:37)
[2021-06-02] MEDS ORDERED: Sodium Chloride 0.9% 2.5 ML Syringe FLUSH PRN (10:37)
[2021-06-02] MEDS ORDERED: Sodium Chloride 0.9% 10 ML Syringe FLUSH PRN (10:37)
[2021-06-02] MEDS ORDERED: Sodium Chloride 0.9% 10 ML SDV IV PRN (10:37)
[2021-06-02] MEDS ORDERED: Carboprost Tromethamine 250 MCG/1 ML Amp IM PRN (10:37)
[2021-06-02] MEDS ORDERED: Nalbuphine 10 MG/1 ML Vial IVPUSH PRN (10:37)
[2021-06-02] MEDS ORDERED: Misoprostol 200 MCG Tab PO PRN (10:37)
[2021-06-02] MEDS ORDERED: Butorphanol 1 MG/ML SDV IVPUSH PRN (10:37)
[2021-06-02] MEDS ORDERED: Tranexamic Acid 1,000 MG in Sodium Chloride 0.9% 100 ML IV PRN (10:37)
[2021-06-02] MEDS ORDERED: Methylergonovine 0.2 MG/1 ML Amp IM PRN (10:37)
[2021-06-02] MEDS ORDERED: Lidocaine 1% 50 ML MDV INJECT PRN (10:37)
[2021-06-02] MEDS ORDERED: Oxytocin/0.9 % Sodium Chloride 30 UNIT/500 ML BAG IV SCH ×2 (10:45→17:15)
[2021-06-02] MEDS ORDERED: Ampicillin 2 GM in Sodium Chloride 0.9% 100 ML IV ONE (11:00)
[2021-06-02] MEDS: Lactated Ringers 1,000 ML IV SCH ×3 (11:44→22:50)
[2021-06-02] MEDS: Ampicillin 1 GM in Sodium Chloride 0.9% 50 ML IV SCH ×2 (16:09→20:12)
[2021-06-02] MEDS ORDERED: Terbutaline 1 MG/ML SDV SUBCUT PRN (17:14)
[2021-06-03] MEDS: Ampicillin 1 GM in Sodium Chloride 0.9% 50 ML IV SCH ×4 (00:03→22:13)
[2021-06-03] MEDS: Lactated Ringers 1,000 ML IV SCH ×2 (05:24→09:02)
[2021-06-03] MEDS ORDERED: Bupivacaine 0.25% 10 ML SDV ONE (08:22)
[2021-06-03] MEDS ORDERED: Ropivacaine HCl/PF 200 ML ONE (08:22)
[2021-06-03] MEDS ORDERED: ePHEDrine 50 MG/ML SDV IVPUSH PRN (09:33)
--- NOTE | 2021-06-03 09:38 | PCM.PREANE ---
Preanesthetic Assessment - Anesthesia/Transfusion/Family Hx Anesthesia History: Prior Anesthesia Without Reaction Transfusion History: No Prior Transfusion(s) - Review of Systems General: No Symptoms Pulmonary: No Symptoms Cardiovascular: No Symptoms Gastrointestinal: No Symptoms Neurological: No Symptoms Other: Reports: None - Physical Assessment Height: 5 ft 3 in Weight: 77.564 kg ASA Class: 2 Mental Status: Alert & Oriented x3 Airway Class: Mallampati = 2 Dentition: Reports: Normal Dentition Thyro-Mental Finger Breadths: 3 Mouth Opening Finger Breadths: 3 ROM/Head Extension: Full Lungs: Clear to Auscultation, Normal Respiratory Effort Cardiovascular: Regular Rate, Regular Rhythm - Lab Values: Laboratory Last Values WBC 11.63 K/uL (4.0-11.0) H 06/02/21 21:58 RBC 4.16 M/uL (4.30-5.90) L 06/02/21 21:58 Hgb 13.0 g/dL (12.0-16.0) 06/02/21 21:58 Hct 37.4 % (36.0-46.0) 06/02/21 21:58 MCV 89.9 fL (80.0-98.0) 06/02/21 21:58 MCH 31.3 pg (27.0-32.0) 06/02/21 21:58 MCHC 34.8 g/dL (31.0-37.0) 06/02/21 21:58 RDW Std Deviation 40.7 fl (28.0-62.0) 06/02/21 21:58 RDW Coeff of Chaparro 13 % (11.0-15.0) 06/02/21 21:58 Plt Count 208 K/uL (150-400) 06/02/21 21:58 MPV 10.30 fL (7.40-12.00) 06/02/21 21:58 Nucleated RBC % 0.0 /100WBC 06/02/21 21:58 Nucleated RBCs # 0 K/uL 06/02/21 21:58 INR 0.94 06/02/21 21:58 APTT 29.2 SEC (18.6-31.3) 06/02/21 21:58 Fibrinogen 498 mg/dL (215-411) H 06/02/21 21:58 SARS-CoV-2 RNA (AMELIE) NEGATIVE (NEGATIVE) 06/02/21 10:50 Blood Type O POSITIVE 06/02/21 11:10 Antibody Screen NEGATIVE 06/02/21 11:10 Crossmatch See Detail 06/02/21 11:10 - Allergies Allergies/Adverse Reactions: Allergies Allergy/AdvReac Type Severity Reaction Status Date / Time No Known Allergies Allergy Verified 10/16/19 20:57 - Acknowledgements Anesthesia Type Planned: Epidural Pt an Appropriate Candidate for the Planned Anesthesia: Yes Alternatives and Risks of Anesthesia Discussed w Pt/Guardian: Yes Pt/Guardian Understands and Agrees with Anesthesia Plan: Yes PreAnesthesia Questionnaire - Past Health History Medical/Surgical History: Denies Medical/Surgical History HEENT History: Reports: None Cardiovascular History: Reports: None Respiratory History: Reports: None Gastrointestinal History: Reports: GERD Genitourinary History: Reports: None [employer] History: Reports: Musculoskeletal History: Reports: None Neurological History: Reports: None Psychiatric History: Reports: None Endocrine/Metabolic History: Reports: None Hematologic History: Reports: None Oncologic (Cancer) History: Reports: None - Infectious Disease History Infectious Disease History: Reports: Chicken Pox - Past Surgical History HEENT Surgical History: Reports: Oral Surgery Respiratory Surgical History: Reports: None - SUBSTANCE USE Tobacco Use Status *Q: Never Tobacco User Tobacco Use Within Last Twelve Months: No Second Hand Smoke Exposure: No Recreational Drug Use History: No - HOME MEDS Home Medications: Home Meds Vits #93/Iron Fum/FA [ Formula Tablet] 1 each PO DAILY 10/15/19 [History] - CURRENT (IN HOUSE) MEDS Current Meds: Current Medications Butorphanol Tartrate (Butorphanol 1 Mg/Ml Sdv) 1 mg IVPUSH Q1H PRN PRN Reason: Pain (severe 7-10) Carboprost Tromethamine (Carboprost Tromethamine 250 Mcg/1 Ml Amp) 250 mcg IM ASDIRECTED PRN PRN Reason: Post Hemorrhage Oxytocin/Sodium Chloride (Oxytocin 30 Unit/500 Ml-Ns) 30 unit in 500 mls @ 999 mls/hr IV TITRATE [facility] Tranexamic Acid 1,000 mg/ (Sodium Chloride) 110 mls @ 660 mls/hr IV ONETIME PRN PRN Reason: Bleeding Ampicillin Sodium 1 gm/ Sodium (Chloride) 50 mls @ 100 mls/hr IV Q4H [facility] Last Admin: 06/03/21 08:10 Dose: 100 mls/hr Documented by: Lactated Ringer's (Ringers, Lactated) 1,000 mls @ 150 mls/hr IV ASDIRECTED [facility] Last Admin: 06/03/21 09:02 Dose: 150 mls/hr Documented by: Oxytocin/Sodium Chloride (Oxytocin 30 Unit/500 Ml-Ns) 30 unit in 500 mls @ 2 mls/hr IV TITRATE [facility]; Protocol Last Titration: 06/03/21 08:09 Dose: 12 munits/min, 12 mls/hr Documented by: Lidocaine HCl (Lidocaine 1% 50 Ml Mdv) 50 ml INJECT ONETIME PRN PRN Reason: Laceration repair Methylergonovine Maleate (Methylergonovine 0.2 Mg/1 Ml Amp) 0.2 mg IM ASDIRECTED PRN PRN Reason: Post Hemorrhage Misoprostol (Misoprostol 200 Mcg Tab) 200 mcg PO ONETIME PRN PRN Reason: Post Hemorrhage Nalbuphine HCl (Nalbuphine 10 Mg/1 Ml Vial) 10 mg IVPUSH Q1H PRN PRN Reason: Pain (severe 7-10) Ondansetron HCl (Ondansetron 4 Mg/2 Ml Sdv) 4 mg IVPUSH Q6H PRN PRN Reason: Nausea/Vomiting Sodium Chloride (Sodium Chloride 0.9% 10 Ml Syringe) 10 ml FLUSH ASDIRECTED PRN PRN Reason: Keep Vein Open Sodium Chloride (Sodium Chloride 0.9% 2.5 Ml Syringe) 2.5 ml FLUSH ASDIRECTED PRN PRN Reason: Keep Vein Open Sodium Chloride (Sodium Chloride 0.9% 10 Ml Sdv) 10 ml IV ASDIRECTED PRN PRN Reason: IV Use Sterile Water (Water For Irrigation,Sterile 1,000 Ml Container) 1,000 ml IRR ASDIRECTED PRN PRN Reason: delivery Terbutaline Sulfate (Terbutaline 1 Mg/Ml Sdv) 0.25 mg SUBCUT ASDIRECTED PRN PRN Reason: Tacysystole Discontinued Medications Bupivacaine HCl (Bupivacaine 0.25% 10 Ml Sdv) Confirm Administered Dose 10 ml .ROUTE .STK-MED ONE Stop: 06/03/21 08:23 Ampicillin Sodium 2 gm/ Sodium (Chloride) 100 mls @ 200 mls/hr IV ONETIME ONE Stop: 06/02/21 11:29 Last Admin: 06/02/21 11:45 Dose: 200 mls/hr Documented by: Ropivacaine (Naropin 0.2%) Confirm Administered Dose 200 mls @ as directed .ROUTE .STK-MED ONE Stop: 06/03/21 08:23
--- NOTE | 2021-06-03 09:44 | PCM.SN.2 ---
Time Documentation - Pre-Procedure Checklist Attending Provider Aware: Yes Chart Reviewed: Yes Consent Signed: Yes Labs Reviewed: Yes VS/FHR Reviewed: Yes Patient Identification Confirmation Method: Reports: ID Band Visual, Verbal Patient Pt an Appropriate Candidate for the Planned Anesthesia: Yes Alternatives and Risks of Anesthesia Discussed w Pt/Guardian: Yes - Procedure Procedure Start Date: 06/03/21 Procedure Start Time: 08:[address]: Reports: Blood Pressure, Heart Rate, SPO2 Functional IV: Yes Safety Measures: Reports: Patient Identified, Procedure Verified, Site Verified, Procedure Time Out Patient Position: Reports: Sitting Prep: Reports: Betadine x3, Sterile Drape Local Anesthetic: Reports: Intradermal Wheal w Lidocaine 1% Regional Placement Level: Reports: L4-5 Needle: Reports: 17 g Touhy Approach: Reports: Midline Technique: Reports: ERNST Plastic Syringe Parasthesia: Reports: None Fluid Obtained: Reports: None Test Dose Medication: Reports: Lidocaine 1.5% w Epinephrine 1:200,000 Test Dose Response: Reports: Negative Loading Dose Time: 08:49 Loading Dose Medication: Bupivacaine 0.25% 15 ml total in 3 separate doses Loading Dose Patient Position: semi fowlers with ANDI Continuous Infusion Start Time: 09:00 Continuous Infusion Medication: Ropivacaine 0.2% Continuous Infusion Rate: 16 ml/hr Continuous Infusion PCS Bolus Option: 4ml q 15 min Patient Position Post Placement: Reports: Semi-fowlers/ANDI Post-procedure Pain Level: 2 Level Achieved: T-10 VS and FHR Monitored in Unit Post Placement: Yes Procedure End Date: 06/03/21 Procedure End Time: 09:24
--- NOTE | 2021-06-03 09:45 | PCM.POSTAN ---
POST ANESTHESIA ASSESSMENT - MENTAL STATUS Mental Status: Alert, Oriented - RESPIRATORY Respiratory Status: Respiratory Rate WNL, Airway Patent, O2 Saturation Stable - CARDIOVASCULAR CV Status: Pulse Rate WNL, Blood Pressure Stable - GASTROINTESTINAL GI Status: No Symptoms - POST OP HYDRATION Hydration Status: Adequate & Stable
[2021-06-03] MEDS ORDERED: Ropivacaine 0.2% 2MG/ML 200 ML Bag EPIDUR SCH (10:00)
--- NOTE | 2021-06-03 13:00 | PCM.DEL ---
L & D Note - General Info Date of Service: 06/03/21 Mother's Due Date: 06/22/21 - Delivery Note Labor: Augmented by Oxytocin Delivery Outcome: Livebirth Infant Delivery Mode: Spontaneous Presentation: Left Occiput Anterior (NELY) Nuchal Cord: Present (triplr) Prep: Other Anesthesia Type: Epidural Amniotic Fluid Description: Clear Episiotomy Type: Left Mediolateral Laceration: None Suture type: Vicryl Suture size: 3-0 Placenta: Intact, Spontaneous Cord: 3 Vessels Estimated Blood Loss: 300 Resuscitation Needed: Yes : Suctioned, Stimulated, Warmer Used Score 1 min: 6 Score 5 min: 7 - General Info Date of Service: 06/03/21 - Patient Data Weight - Most Recent: 77.564 kg I&O - Last 24 Hours: Intake & Output 06/02/21 06/03/21 06/03/21 22:59 06:59 14:59 Intake Total 2150 50 Balance 2150 50 Lab Results Last 24 Hours: Laboratory Results - last 24 hr 06/02/21 06/02/21 06/02/21 Range/Units 11:10 16:20 21:58 WBC 11.62 H 11.63 H (4.0-11.0) K/uL RBC 4.07 L 4.16 L (4.30-5.90) M/uL Hgb 12.7 13.0 (12.0-16.0) g/dL Hct 36.9 37.4 (36.0-46.0) % MCV 90.7 89.9 (80.0-98.0) fL MCH 31.2 31.3 (27.0-32.0) pg MCHC 34.4 34.8 (31.0-37.0) g/dL RDW Std Deviation 41.5 40.7 (28.0-62.0) fl RDW Coeff of Chaparro 13 13 (11.0-15.0) % Plt Count 207 208 (150-400) K/uL MPV 10.40 10.30 (7.40-12.00) fL Nucleated RBC % 0.0 0.0 /100WBC Nucleated RBCs # 0 0 K/uL INR APTT (18.6-31.3) SEC Fibrinogen (215-411) mg/dL Blood Type O POSITIVE Antibody Screen NEGATIVE Crossmatch See Detail 06/02/21 Range/Units 21:58 WBC (4.0-11.0) K/uL RBC (4.30-5.90) M/uL Hgb (12.0-16.0) g/dL Hct (36.0-46.0) % MCV (80.0-98.0) fL MCH (27.0-32.0) pg MCHC (31.0-37.0) g/dL RDW Std Deviation (28.0-62.0) fl RDW Coeff of Chaparro (11.0-15.0) % Plt Count (150-400) K/uL MPV (7.40-12.00) fL Nucleated RBC % /100WBC Nucleated RBCs # K/uL INR 0.94 APTT 29.2 (18.6-31.3) SEC Fibrinogen 498 H (215-411) mg/dL Blood Type Antibody Screen Crossmatch Med Orders - Current: Current Medications Butorphanol Tartrate (Butorphanol 1 Mg/Ml Sdv) 1 mg IVPUSH Q1H PRN PRN Reason: Pain (severe 7-10) Carboprost Tromethamine (Carboprost Tromethamine 250 Mcg/1 Ml Amp) 250 mcg IM ASDIRECTED PRN PRN Reason: Post Hemorrhage Ephedrine Sulfate (Ephedrine 50 Mg/Ml Sdv) 10 mg IVPUSH Q1M PRN PRN Reason: Hypotension Oxytocin/Sodium Chloride (Oxytocin 30 Unit/500 Ml-Ns) 30 unit in 500 mls @ 999 mls/hr IV TITRATE [facility] Tranexamic Acid 1,000 mg/ (Sodium Chloride) 110 mls @ 660 mls/hr IV ONETIME PRN PRN Reason: Bleeding Ampicillin Sodium 1 gm/ Sodium (Chloride) 50 mls @ 100 mls/hr IV Q4H [facility] Last Admin: 06/03/21 08:10 Dose: 100 mls/hr Documented by: Lactated Ringer's (Ringers, Lactated) 1,000 mls @ 150 mls/hr IV ASDIRECTED [facility] Last Admin: 06/03/21 09:02 Dose: 150 mls/hr Documented by: Oxytocin/Sodium Chloride (Oxytocin 30 Unit/500 Ml-Ns) 30 unit in 500 mls @ 2 mls/hr IV TITRATE [facility]; Protocol Last Titration: 06/03/21 10:17 Dose: 0 munits/min, 0 mls/hr Documented by: Lidocaine HCl (Lidocaine 1% 50 Ml Mdv) 50 ml INJECT ONETIME PRN PRN Reason: Laceration repair Methylergonovine Maleate (Methylergonovine 0.2 Mg/1 Ml Amp) 0.2 mg IM ASDIRECTED PRN PRN Reason: Post Hemorrhage Miscellaneous Medication (Phenylephrine Hcl In 0.9% Nacl 1 Mg/10 Ml Syringe) 0.1 mg IVPUSH Q1M PRN PRN Reason: Hypotension Misoprostol (Misoprostol 200 Mcg Tab) 200 mcg PO ONETIME PRN PRN Reason: Post Hemorrhage Nalbuphine HCl (Nalbuphine 10 Mg/1 Ml Vial) 10 mg IVPUSH Q1H PRN PRN Reason: Pain (severe 7-10) Ondansetron HCl (Ondansetron 4 Mg/2 Ml Sdv) 4 mg IVPUSH Q6H PRN PRN Reason: Nausea/Vomiting Ropivacaine (Ropivacaine 0.2% 2mg/Ml 200 Ml Bag) 400 mg EPIDUR ASDIRECTED [facility] Sodium Chloride (Sodium Chloride 0.9% 10 Ml Syringe) 10 ml FLUSH ASDIRECTED PRN PRN Reason: Keep Vein Open Sodium Chloride (Sodium Chloride 0.9% 2.5 Ml Syringe) 2.5 ml FLUSH ASDIRECTED PRN PRN Reason: Keep Vein Open Sodium Chloride (Sodium Chloride 0.9% 10 Ml Sdv) 10 ml IV ASDIRECTED PRN PRN Reason: IV Use Sterile Water (Water For Irrigation,Sterile 1,000 Ml Container) 1,000 ml IRR ASDIRECTED PRN PRN Reason: delivery Terbutaline Sulfate (Terbutaline 1 Mg/Ml Sdv) 0.25 mg SUBCUT ASDIRECTED PRN PRN Reason: Tacysystole Discontinued Medications Bupivacaine HCl (Bupivacaine 0.25% 10 Ml Sdv) Confirm Administered Dose 10 ml .ROUTE .STK-MED ONE Stop: 06/03/21 08:23 Ampicillin Sodium 2 gm/ Sodium (Chloride) 100 mls @ 200 mls/hr IV ONETIME ONE Stop: 06/02/21 11:29 Last Admin: 06/02/21 11:45 Dose: 200 mls/hr Documented by: Ropivacaine (Naropin 0.2%) Confirm Administered Dose 200 mls @ as directed .ROUTE .STK-MED ONE Stop: 06/03/21 08:23 - Problem List & Annotations (1) Placental abruption affecting delivery SNOMED Code(s): 110861371, 593745038 Code(s): O45.90 - PREMATURE SEPARATION OF PLACENTA, UNSP, UNSP TRIMESTER Status: Acute Current Visit: Yes - Problem List Review Problem List Initiated/Reviewed/Updated: Yes
[2021-06-03] MEDS ORDERED: Acetaminophen 500 MG Tab PO PRN ×2 (13:01)
[2021-06-03] MEDS ORDERED: Bisacodyl 10 MG Supp RECTAL PRN (13:01)
[2021-06-03] MEDS ORDERED: Benzocaine/Menthol 20%-0.5% Spray 78 GM Cannister TOP PRN (13:01)
[2021-06-03] MEDS ORDERED: Witch Hazel Medicated Pads 40/Jar TOP PRN (13:01)
[2021-06-03] MEDS ORDERED: Ibuprofen 800 MG Tab PO PRN (13:01)
[2021-06-03] MEDS ORDERED: Lanolin 100% Cream 7 GM Tube TOP PRN (13:01)
[2021-06-03] MEDS ORDERED: Docusate Sodium 100 MG Cap PO PRN (13:01)
[2021-06-03] MEDS ORDERED: Methylergonovine 0.2 MG/1 ML Amp IM PRN (13:01)
[2021-06-03] MEDS ORDERED: Tranexamic Acid 1,000 MG in Sodium Chloride 0.9% 100 ML IV PRN (13:01)
[2021-06-03] MEDS ORDERED: Ibuprofen 400 MG Tab PO PRN (13:01)
--- NOTE | 2021-06-03 13:07 | PCM48HPAN ---
Post Anesthesia Note - EVALUATION WITHIN 48HRS OF ANESTHETIC Vital Signs in Normal Range: Yes Patient Participated in Evaluation: Yes Respiratory Function Stable: Yes Airway Patent: Yes Cardiovascular Function Stable: Yes Hydration Status Stable: Yes Pain Control Satisfactory: Yes Nausea and Vomiting Control Satisfactory: Yes Mental Status Recovered: Yes
--- NOTE | 2021-06-03 19:56 | OR ---
SURGEON: Millie Michael M.D. DATE OF PROCEDURE: 06/03/2021 PREOPERATIVE DIAGNOSIS: 37-week intrauterine , suspected abruption. POSTOPERATIVE DIAGNOSIS: 37-week intrauterine , suspected abruption. PROCEDURES: Pitocin induction of labor, artificial rupture of membranes, term spontaneous vaginal delivery with a mediolateral left episiotomy and repair. PRIMARY SURGEON: Millie Michael M.D. ANESTHESIA: Epidural. ESTIMATED BLOOD LOSS: Less than 300 mL. FINDINGS: Live-born male. score of 6 and 7. COMPLICATIONS: None known. DISPOSITION: Baby is in nursery in good condition. Mother remains in LDR in good condition. BRIEF HISTORY: This is a 31-year-old female. She is G2, P1-0-0-1. She presented to Labor and Delivery on 06/02/2021 with a complaint of bleeding. This was a large area on a pad. She presented to Labor and Delivery. She had category 1 heart tones. She was not anemic. She had coagulation studies done, which were normal. She had minimal further bleeding. However, due to the amount of bleeding that was described, a decision was made to keep her for induction of labor. She was initially 1 to 2 cm. The Cytotec was not utilized due to concern for abruption and she did receive Pitocin. She had category 1 heart tones throughout labor. When she was 3 cm dilated, she had artificial rupture of membranes. She then received an epidural and she progressed shortly thereafter to complete. DESCRIPTION OF PROCEDURE: With the patient in dorsal lithotomy position, under adequate epidural analgesia, the patient pushed. While she was pushing, note was made of extensive vaginal adhesions from her prior delivery. After discussion, she did receive a mediolateral episiotomy with her prior delivery and these adhesions caused tight scar tissue at the introitus. The patient continued to push over approximately 15 minute time period to a 5+ station, at which time there was a deceleration. This along with the obstructing scar tissue, I did proceed with a left mediolateral episiotomy to release the previous scar tissue, and at this time, the head was delivered spontaneously and atraumatically over the perineum with support. There was a triple nuchal cord causing the deceleration that was identified. This was reduced. The was stimulated, handed to the mother in the presence of nurse attending delivery. The infant was a live-born male, score of 6 and 7. Weight is pending at the time of dictation. After 1 minute, the cord was doubly clamped and cut. Cord blood was collected for cord ABGs as well as routine cord blood sampling. Pitocin was initiated after delivery of the to assist with delivery of the placenta which was delivered spontaneously, Schultze intact with 3 vessels. Upon inspection of the pelvis and perineum, there were no periurethral, vaginal sidewall, cervical, or rectal laceration. There was a small left mediolateral laceration that was repaired with a running lock suture of 3-0 Vicryl for the vaginal tissue. I did have to repair the vagina more medially where there was the prior dense scar tissue using a running lock suture of the same and then the 3-0 Vicryl was utilized to reapproximate the left perineum and skin in a subcuticular manner. Final sponge, needle, and instrument counts were correct. There were no known complications. Mother is in recovery in good condition. Baby is in nursery with observation. CHANO CLARK /[id number]
--- NOTE | 2021-06-04 07:03 | PCM.PNPP ---
- General Info Date of Service: 06/04/21 Subjective Update: Baby in nursery, still anticipate rooming in today. Working on pumping Functional Status: Reports: Pain Controlled - Review of Systems General: Reports: No Symptoms HEENT: Reports: No Symptoms Pulmonary: Reports: No Symptoms Cardiovascular: Reports: No Symptoms Gastrointestinal: Reports: No Symptoms Genitourinary: Reports: No Symptoms Musculoskeletal: Reports: No Symptoms Skin: Reports: No Symptoms Neurological: Reports: No Symptoms Psychiatric: Reports: No Symptoms - Patient Data Vital Signs - Most Recent: Last Vital Signs Temp 36.6 C 06/04/21 05:15 Pulse 77 06/04/21 05:15 Resp 15 06/04/21 05:15 BP 113/66 06/04/21 05:15 Pulse Ox 98 06/04/21 05:15 Weight - Most Recent: 77.564 kg Lab Results - Last 24 Hours: Laboratory Results - last 24 hr 06/03/21 Range/Units 11:29 Cord ABG pH 7.349 (7.18-7.38) Cord ABG Base Excess -4 (-10--2) Cord VBG pH 7.336 (7.25-7.45) Cord VBG Base Excess -4 (-10--2) Med Orders - Current: Current Medications Acetaminophen (Acetaminophen 500 Mg Tab) 500 mg PO Q4H PRN PRN Reason: Pain (mild 1-3) Acetaminophen (Acetaminophen 500 Mg Tab) 1,000 mg PO Q4H PRN PRN Reason: Pain (mild 1-3) Benzocaine/Menthol (Benzocaine/Menthol 20%-0.5% [place] 78 Gm Cannister) 78 gm TOP ASDIRECTED PRN PRN Reason: Perineal Comfort Measure Last Admin: 06/03/21 17:50 Dose: 1 canister Documented by: Bisacodyl (Bisacodyl 10 Mg Supp) 10 mg RECTAL ONETIME PRN PRN Reason: Constipation Docusate Sodium (Docusate Sodium 100 Mg Cap) 100 mg PO Q12H PRN PRN Reason: Constipation Emollient Ointment (Lanolin 100% Cream 7 Gm Tube) 0 gm TOP ASDIRECTED PRN PRN Reason: Sore Nipples Tranexamic Acid 1,000 mg/ (Sodium Chloride) 110 mls @ 660 mls/hr IV ONETIME PRN PRN Reason: Bleeding Ibuprofen (Ibuprofen 400 Mg Tab) 400 mg PO Q4H PRN PRN Reason: Pain (mild 1-3) Ibuprofen (Ibuprofen 800 Mg Tab) 800 mg PO Q6H PRN PRN Reason: Cramping Methylergonovine Maleate (Methylergonovine 0.2 Mg/1 Ml Amp) 0.2 mg IM ONETIME PRN PRN Reason: Excessive Vaginal Bleeding Witch Chrissie (Witch Chrissie Medicated Pads 40/Jar) 1 pad TOP ASDIRECTED PRN PRN Reason: comfort care Last Admin: 06/03/21 17:50 Dose: 1 tub Documented by: Discontinued Medications Bupivacaine HCl (Bupivacaine 0.25% 10 Ml Sdv) Confirm Administered Dose 10 ml .ROUTE .STK-MED ONE Stop: 06/03/21 08:23 Last Admin: 06/03/21 22:13 Dose: Not Given Documented by: Butorphanol Tartrate (Butorphanol 1 Mg/Ml Sdv) 1 mg IVPUSH Q1H PRN PRN Reason: Pain (severe 7-10) Carboprost Tromethamine (Carboprost Tromethamine 250 Mcg/1 Ml Amp) 250 mcg IM ASDIRECTED PRN PRN Reason: Post Hemorrhage Ephedrine Sulfate (Ephedrine 50 Mg/Ml Sdv) 10 mg IVPUSH Q1M PRN PRN Reason: Hypotension Oxytocin/Sodium Chloride (Oxytocin 30 Unit/500 Ml-Ns) 30 unit in 500 mls @ 999 mls/hr IV TITRATE [facility] Tranexamic Acid 1,000 mg/ (Sodium Chloride) 110 mls @ 660 mls/hr IV ONETIME PRN PRN Reason: Bleeding Ampicillin Sodium 2 gm/ Sodium (Chloride) 100 mls @ 200 mls/hr IV ONETIME ONE Stop: 06/02/21 11:29 Last Admin: 06/02/21 11:45 Dose: 200 mls/hr Documented by: Ampicillin Sodium 1 gm/ Sodium (Chloride) 50 mls @ 100 mls/hr IV Q4H [facility] Last Admin: 06/03/21 22:13 Dose: Not Given Documented by: Lactated Ringer's (Ringers, Lactated) 1,000 mls @ 150 mls/hr IV ASDIRECTED [facility] Last Admin: 06/03/21 09:02 Dose: 150 mls/hr Documented by: Oxytocin/Sodium Chloride (Oxytocin 30 Unit/500 Ml-Ns) 30 unit in 500 mls @ 2 mls/hr IV TITRATE [facility]; Protocol Last Titration: 06/03/21 10:17 Dose: 0 munits/min, 0 mls/hr Documented by: Ropivacaine (Naropin 0.2%) Confirm Administered Dose 200 mls @ as directed .LISA WANG-MED ONE Stop: 06/03/21 08:23 Last Admin: 06/03/21 22:13 Dose: Not Given Documented by: Lidocaine HCl (Lidocaine 1% 50 Ml Mdv) 50 ml INJECT ONETIME PRN PRN Reason: Laceration repair Methylergonovine Maleate (Methylergonovine 0.2 Mg/1 Ml Amp) 0.2 mg IM ASDIRECTED PRN PRN Reason: Post Hemorrhage Miscellaneous Medication (Phenylephrine Hcl In 0.9% Nacl 1 Mg/10 Ml Syringe) 0.1 mg IVPUSH Q1M PRN PRN Reason: Hypotension Misoprostol (Misoprostol 200 Mcg Tab) 200 mcg PO ONETIME PRN PRN Reason: Post Hemorrhage Nalbuphine HCl (Nalbuphine 10 Mg/1 Ml Vial) 10 mg IVPUSH Q1H PRN PRN Reason: Pain (severe 7-10) Ondansetron HCl (Ondansetron 4 Mg/2 Ml Sdv) 4 mg IVPUSH Q6H PRN PRN Reason: Nausea/Vomiting Ropivacaine (Ropivacaine 0.2% 2mg/Ml 200 Ml Bag) 400 mg EPIDUR ASDIRECTED [facility] Sodium Chloride (Sodium Chloride 0.9% 10 Ml Syringe) 10 ml FLUSH ASDIRECTED PRN PRN Reason: Keep Vein Open Sodium Chloride (Sodium Chloride 0.9% 2.5 Ml Syringe) 2.5 ml FLUSH ASDIRECTED P RN PRN Reason: Keep Vein Open Sodium Chloride (Sodium Chloride 0.9% 10 Ml Sdv) 10 ml IV ASDIRECTED PRN PRN Reason: IV Use Sterile Water (Water For Irrigation,Sterile 1,000 Ml Container) 1,000 ml IRR ASDIRECTED PRN PRN Reason: delivery Terbutaline Sulfate (Terbutaline 1 Mg/Ml Sdv) 0.25 mg SUBCUT ASDIRECTED PRN PRN Reason: Tacysystole - Interaction Infant Disposition, : to Nursery Support Person: - Recovery Exam Fundal Tone: Firm Fundal Level: 2 Fingerbreadths Below Umbilicus Fundal Placement: Midline Lochia Amount: Scant Lochia Color: Rubra/Red Perineum Description: Other (see below) Other Perinuem Description: 2nd degree laceration as noted per MD Episiotomy/Laceration: Approximated Bladder Status: Voiding - Exam General: Alert, Oriented Neck: Supple Lungs: Normal Respiratory Effort GI/Abdominal Exam: Soft, Non-Tender, No Distention Extremities: Normal Inspection, Non-Tender, No Pedal Edema Skin: Warm, Dry, Intact Neurological: No New Focal Deficit Psy/Mental Status: Alert, Normal Affect, Normal Mood - Problem List & Annotations (1) Placental abruption affecting delivery SNOMED Code(s): 191569505, 808835725 Code(s): O45.90 - PREMATURE SEPARATION OF PLACENTA, UNSP, UNSP TRIMESTER Status: Acute Current Visit: Yes - Problem List Review Problem List Initiated/Reviewed/Updated: Yes - My Orders Last 24 Hours: My Active Orders 06/03/21 13:01 Patient Status [ADT] Routine May Shower [RC] ASDIRECTED Up ad Veronica [RC] ASDIRECTED Vital Signs [RC] PER UNIT ROUTINE Acetaminophen [Tylenol Extra Strength] 1,000 mg PO Q4H PRN Acetaminophen [Tylenol Extra Strength] 500 mg PO Q4H PRN Benzocaine/Menthol [Dermoplast Pain Relief 20%-0.5% Cunningham] 78 gm TOP ASDIRECTED PRN Docusate Sodium [Colace] 100 mg PO Q12H PRN Ibuprofen [Motrin] 400 mg PO Q4H PRN Ibuprofen [Motrin] 800 mg PO Q6H PRN Lanolin [Lansinoh HPA] See Dose Instructions TOP ASDIRECTED PRN Methylergonovine [Methergine] 0.2 mg IM ONETIME PRN Tranexamic Acid [Cyklokapron] 1,000 mg Sodium Chloride 0.9% [Normal Saline] 100 ml IV ONETIME bisacodyL [Dulcolax] 10 mg RECTAL ONETIME PRN witch Chrissie [Tucks] 1 pad TOP ASDIRECTED PRN Assess Lochia [WOMSER] Per Unit Routine Assess Uterine Involution [WOMSER] Per Unit Routine Perineal Care [OM.PC] Per Unit Routine Peripheral IV Discontinue [OM.PC] Routine Resuscitation Status Routine 06/03/21 Dinner Regular Diet [DIET] 06/04/21 05:00 HEMOGLOBIN/HEMATOCRIT,HH [HEME] Routine - Assessment Assessment:: PPD#1 after , induction due to suspected placental abruption. Baby stable in nursery, anticipate rooming in today, consider discharge tomorrow.
--- NOTE | 2021-06-05 10:51 | PCM.PNPP ---
- General Info Date of Service: 06/05/21 Functional Status: Reports: Pain Controlled, Tolerating Diet, Ambulating, Urinating - Review of Systems General: Reports: No Symptoms HEENT: Reports: No Symptoms Pulmonary: Reports: No Symptoms Cardiovascular: Reports: No Symptoms Gastrointestinal: Reports: No Symptoms Genitourinary: Reports: No Symptoms Musculoskeletal: Reports: No Symptoms Skin: Reports: No Symptoms Neurological: Reports: No Symptoms Psychiatric: Reports: No Symptoms - Patient Data Vital Signs - Most Recent: Last Vital Signs Temp 36.6 C 06/05/21 08:00 Pulse 78 06/05/21 08:00 Resp 16 06/05/21 08:00 BP 117/71 06/05/21 08:00 Pulse Ox 98 06/05/21 08:00 Weight - Most Recent: 171 lb Lab Results - Last 24 Hours: Laboratory Results - last 24 hr 06/02/21 Range/Units 11:10 RPR Non-Reac (Non-Reac) Med Orders - Current: Current Medications Acetaminophen (Acetaminophen 500 Mg Tab) 500 mg PO Q4H PRN PRN Reason: Pain (mild 1-3) Acetaminophen (Acetaminophen 500 Mg Tab) 1,000 mg PO Q4H PRN PRN Reason: Pain (mild 1-3) Benzocaine/Menthol (Benzocaine/Menthol 20%-0.5% [place] 78 Gm Cannister) 78 gm TOP ASDIRECTED PRN PRN Reason: Perineal Comfort Measure Last Admin: 06/03/21 17:50 Dose: 1 canister Documented by: Bisacodyl (Bisacodyl 10 Mg Supp) 10 mg RECTAL ONETIME PRN PRN Reason: Constipation Docusate Sodium (Docusate Sodium 100 Mg Cap) 100 mg PO Q12H PRN PRN Reason: Constipation Emollient Ointment (Lanolin 100% Cream 7 Gm Tube) 0 gm TOP ASDIRECTED PRN PRN Reason: Sore Nipples Tranexamic Acid 1,000 mg/ (Sodium Chloride) 110 mls @ 660 mls/hr IV ONETIME PRN PRN Reason: Bleeding Ibuprofen (Ibuprofen 400 Mg Tab) 400 mg PO Q4H PRN PRN Reason: Pain (mild 1-3) Ibuprofen (Ibuprofen 800 Mg Tab) 800 mg PO Q6H PRN PRN Reason: Cramping Methylergonovine Maleate (Methylergonovine 0.2 Mg/1 Ml Amp) 0.2 mg IM ONETIME PRN PRN Reason: Excessive Vaginal Bleeding Witch Chrissie (Witch Chrissie Medicated Pads 40/Jar) 1 pad TOP ASDIRECTED PRN PRN Reason: comfort care Last Admin: 06/03/21 17:50 Dose: 1 tub Documented by: Discontinued Medications Bupivacaine HCl (Bupivacaine 0.25% 10 Ml Sdv) Confirm Administered Dose 10 ml .ROUTE .STK-MED ONE Stop: 06/03/21 08:23 Last Admin: 06/03/21 22:13 Dose: Not Given Documented by: Butorphanol Tartrate (Butorphanol 1 Mg/Ml Sdv) 1 mg IVPUSH Q1H PRN PRN Reason: Pain (severe 7-10) Carboprost Tromethamine (Carboprost Tromethamine 250 Mcg/1 Ml Amp) 250 mcg IM ASDIRECTED PRN PRN Reason: Post Hemorrhage Ephedrine Sulfate (Ephedrine 50 Mg/Ml Sdv) 10 mg IVPUSH Q1M PRN PRN Reason: Hypotension Oxytocin/Sodium Chloride (Oxytocin 30 Unit/500 Ml-Ns) 30 unit in 500 mls @ 999 mls/hr IV TITRATE [facility] Tranexamic Acid 1,000 mg/ (Sodium Chloride) 110 mls @ 660 mls/hr IV ONETIME PRN PRN Reason: Bleeding Ampicillin Sodium 2 gm/ Sodium (Chloride) 100 mls @ 200 mls/hr IV ONETIME ONE Stop: 06/02/21 11:29 Last Admin: 06/02/21 11:45 Dose: 200 mls/hr Documented by: Ampicillin Sodium 1 gm/ Sodium (Chloride) 50 mls @ 100 mls/hr IV Q4H [facility] Last Admin: 06/03/21 22:13 Dose: Not Given Documented by: Lactated Ringer's (Ringers, Lactated) 1,000 mls @ 150 mls/hr IV ASDIRECTED [facility] Last Admin: 06/03/21 09:02 Dose: 150 mls/hr Documented by: Oxytocin/Sodium Chloride (Oxytocin 30 Unit/500 Ml-Ns) 30 unit in 500 mls @ 2 mls/hr IV TITRATE [facility]; Protocol Last Titration: 06/03/21 10:17 Dose: 0 munits/min, 0 mls/hr Documented by: Ropivacaine (Naropin 0.2%) Confirm Administered Dose 200 mls @ as directed .ROUTE .STK-MED ONE Stop: 06/03/21 08:23 Last Admin: 06/03/21 22:13 Dose: Not Given Documented by: Lidocaine HCl (Lidocaine 1% 50 Ml Mdv) 50 ml INJECT ONETIME PRN PRN Reason: Laceration repair Methylergonovine Maleate (Methylergonovine 0.2 Mg/1 Ml Amp) 0.2 mg IM ASDIRECTED PRN PRN Reason: Post Hemorrhage Miscellaneous Medication (Phenylephrine Hcl In 0.9% Nacl 1 Mg/10 Ml Syringe) 0.1 mg IVPUSH Q1M PRN PRN Reason: Hypotension Misoprostol (Misoprostol 200 Mcg Tab) 200 mcg PO ONETIME PRN PRN Reason: Post Hemorrhage Nalbuphine HCl (Nalbuphine 10 Mg/1 Ml Vial) 10 mg IVPUSH Q1H PRN PRN Reason: Pain (severe 7-10) Ondansetron HCl (Ondansetron 4 Mg/2 Ml Sdv) 4 mg IVPUSH Q6H PRN PRN Reason: Nausea/Vomiting Ropivacaine (Ropivacaine 0.2% 2mg/Ml 200 Ml Bag) 400 mg EPIDUR ASDIRECTED [place] Sodium Chloride (Sodium Chloride 0.9% 10 Ml Syringe) 10 ml FLUSH ASDIRECTED PRN PRN Reason: Keep Vein Open Sodium Chloride (Sodium Chloride 0.9% 2.5 Ml Syringe) 2.5 ml FLUSH ASDIRECTED PRN PRN Reason: Keep Vein Open Sodium Chloride (Sodium Chloride 0.9% 10 Ml Sdv) 10 ml IV ASDIRECTED PRN PRN Reason: IV Use Sterile Water (Water For Irrigation,Sterile 1,000 Ml Container) 1,000 ml IRR ASDIRECTED PRN PRN Reason: delivery Terbutaline Sulfate (Terbutaline 1 Mg/Ml Sdv) 0.25 mg SUBCUT ASDIRECTED PRN PRN Reason: Tacysystole - Interaction Infant Disposition, : [place] to Nursery Support Person: - Recovery Exam Fundal Tone: Firm Fundal Level: 1 Fingerbreadths Below Umbilicus Fundal Placement: Midline Lochia Amount: Scant Lochia Color: Rubra/Red Perineum Description: Other (see below) Other Perinuem Description: episiotomy. Episiotomy/Laceration: Approximated Bladder Status: Voiding Urinary Elimination: Not Voiding - Exam General: Alert, Oriented, Cooperative, No Acute Distress HEENT: Pupils Equal, Pupils Reactive, EOMI Neck: Supple, Trachea Midline, No JVD Lungs: Normal Respiratory Effort GI/Abdominal Exam: Soft, Non-Tender, No Distention Extremities: Normal Inspection, Normal Range of Motion, Non-Tender, No Pedal Edema Skin: Warm, Dry, Intact Neurological: No New Focal Deficit Psy/Mental Status: Alert, Normal Affect, Normal Mood - Problem List Review Problem List Initiated/Reviewed/Updated: Yes - My Orders Last 24 Hours: My Active Orders 06/05/21 10:46 Ready for Discharge [RC] PER UNIT ROUTINE - Assessment Assessment:: PPD#2 after , induction due to suspected placental abruption. Baby stable in nursery, plan for discharge today. - Plan Plan:: - vitals stable - ambulating and tolerating PO - bleeding light, Hgb stable - baby has increased bilirubin, clinically improving Plan for discharge home today. Reviewed care instructions.
[2021-06-05] MEDS ORDERED: Measles, Mumps & Rubella Vaccine 0.5 ML SDV SUBCUT ONE (16:00)
== END 2021-06-05 19:17 | disposition home or self-care (01) | DRG 560 ==
LOC: MW.OBCHECK 09:58 → MW.OB 09:59 → MW.OBCHECK 10:37 → MW.OB 10:37 → OBSVTOIN 11:29 → MW.OB 06-03 18:12
PROVIDERS: ADMIT Obstetrics & Gynecology; ATTEND Obstetrics & Gynecology
PROC: 10E0XZZ Delivery of Products of Conception, External Approach (ICD-10-PCS; principal; 2021-06-03)
PROC: 10907ZC Drainage of Amniotic Fluid, Therapeutic from Products of Conception, Via Natural or Artificial Opening (ICD-10-PCS; 2021-06-03)
PROC: 0W8NXZZ Division of Female Perineum, External Approach (ICD-10-PCS; 2021-06-03)
PROC: 3E0R3BZ Introduction of Anesthetic Agent into Spinal Canal, Percutaneous Approach (ICD-10-PCS; 2021-06-03)
PROC: 00HU33Z Insertion of Infusion Device into Spinal Canal, Percutaneous Approach (ICD-10-PCS; 2021-06-03)
DX: O45.93 Premature separation of placenta, unspecified, third trimester (principal); Z3A.37 37 weeks gestation of pregnancy; Z37.0 Single live birth; Z20.822 Contact with and (suspected) exposure to COVID-19; O69.81X0 Labor and delivery complicated by cord around neck, without compression, not applicable or unspecified
CPT/HCPCS: 01967; 36415; 51702; 59025; 59409; 82803; 85014; 85018; 85027; 85384; 85610; 85730; 86592; 86850; 86900; 86901; 86920; 86921; 86922; 90471; 90707; A9270-GY; J0290; J2590; J2795; J3490; J7120; U0002